=== PATIENT | female | born 1965 | race Caucasian/White ===

== ENCOUNTER 2016-02-28 04:01 | Emergency (ER) | payer OTHER ==
[~2016-02-28] VITALS: Ht 142.2 cm; Wt 65.0 kg
[~2016-02-28 04:01] MED LIST: ADV25050 INH; ALBU8.5H3 INH; CLON-412 PO; FIORICET PO; METH10TA2 PO; MULTI PO; PANT40TA4 PO; TEMA7.5C2 PO; TIOT18CA INH
[2016-02-28 04:24] VITALS: Ht 142.2 cm; Wt 65.0 kg
[2016-02-28] MEDS ORDERED: morphine 2 MG INJ IV STA (06:20)
[2016-02-28] MEDS ORDERED: ONDANSETRON 4 MG INJ IV STA (06:20)
[2016-02-28] MEDS ORDERED: SOD CHLORIDE 0.9% 1,000 ML IV STA (06:20)
[2016-02-28 07:29] LABS: BASOPHILS % 0.3 % (0.0-2.0); EOSINOPHILS # 0.4 10^3/ul (0.0-0.5); EOSINOPHILS % 5.4 % (0.0-7.0); HEMOGLOBIN 12.3 g/dl (12.0-16.0); LYMPHOCYTES # 2.4 10^3/ul (0.8-2.9); LYMPHOCYTES % 30.1 % (15.0-51.0); MEAN CORPUSCULAR HEMOGLOBIN 27.8 pg (29.0-33.0); MEAN CORPUSCULAR HGB CONC 33.3 g/dl (32.0-37.0); MEAN CORPUSCULAR VOLUME 83.5 fl (82.0-101.0); MEAN PLATELET VOLUME 9.1 fl (7.4-10.4); MONOCYTE # 0.6 10^3/ul (0.3-0.9); MONOCYTES % 6.9 % (0.0-11.0); NEUTROPHIL # 4.6 10^3/ul (1.6-7.5); NEUTROPHILS % 57.3 % (39.0-77.0); PLATELET COUNT 207 10^3/UL (140-440); RED BLOOD COUNT 4.43 10^6/ul (4.20-5.40); RED CELL DISTRIBUTION WIDTH 15.2 % (11.5-14.5)
[2016-02-28 07:33] LABS: CONDITION 1; LH ANALYZER COMMENTS 1
--- NOTE | 2016-02-28 07:42 | ERD ---
ER Documentation Chief Complaint Date/Time DATE: 02/28/16 TIME: 07:41 Chief Complaint C/o chronic abdominal pain. HPI This 51-year-old female comes emergency room complaining of nausea without vomiting as well as diarrhea with occasional crampy abdominal pain going on for over 4 years. States that she has no pain at this time does have some nausea. She does have pain it is in her right upper quadrant. Is otherwise healthy. ROS All systems reviewed and are negative except as per history of present illness. Medications Home Meds Active Scripts Diphenoxylate Hcl-Atropine* (Lomotil*) 5 Ml Soln, 5 ML GTB Q6H Y for DIARRHEA, # 14 ML Prov:ASHLEYPRIETO DO 02/28/16 Naproxen* (Naproxen*) 500 Mg Tablet, 500 MG PO BID Y for PAIN, #20 TAB Prov:PRIETO RAMIREZ DO 02/28/16 Ondansetron (Zofran Odt) 4 Mg Tab.rapdis, 4 MG PO Q6, #10 Prov:PRIETO RAMIREZ 02/28/16 Acetamin/Butalbital/Caffeine* (Fioricet*) [id number] Tab, 1 TAB PO Q6H Y for PAIN, #20 TAB Prov:OJ VAIL PA-C 11/09/15 Methadone Hcl* (Methadone*) 10 Mg Tab, 30 MG PO Q8, #7 TAB Prov:GARETH VANG 02/20/15 Tiotropium [place]* (Spiriva*) 1 Inh Inha, 1 INH INH DAILY for 30 Days Prov:GARETH VANG 02/20/15 Salmeterol Xinaf/Fluticasone* (Advair*) 1 Inh Inha, 1 INH INH BID for 30 Days Prov:GARETH VANG 02/20/15 Pantoprazole* (Pantoprazole*) 40 Mg Tabec, 40 MG PO DAILY@06 for 30 Days Prov:GARETH VANG 02/20/15 Multivitamins* (Theragran*) 1 Tab Tab, 1 TAB PO DAILY for 30 Days, TAB Prov:GARETH VANG 02/20/15 Reported Medications Clonazepam* (Klonopin*) 1 Mg Tablet, 2 MG PO Q6 Y for ANXIETY, TAB 05/30/15 Temazepam* (Restoril*) 7.5 Mg Capsule, 7.5 MG PO HS Y for INSOMNIA, CAP 05/30/15 Albuterol Sulfate* (Proair HFA*) 8.5 Gm Hfa.aer.ad, 2 PUFF INH Q4, INH 11/24/13 Allergies Allergies: Coded Allergies: No Known Allergy (Verified , 05/29/15) PMhx/Soc History of Surgery: Yes (right knee, c/section x2, hysterectomy) Anesthesia Reaction: No Hx Neurological Disorder: No (seizure x1- 2011) Hx Respiratory Disorders: Yes (asthma, COPD) Hx Cardiac Disorders: No Hx Psychiatric Problems: Yes (depression, bipolar) Hx Miscellaneous Medical Probl: No Hx Alcohol Use: No Hx Substance Use: No Hx Tobacco Use: Yes Smoking Status: Current every day smoker Physical Exam Vitals Vital Signs Date Time Temp Pulse Resp B/P Pulse Ox O2 Delivery O2 Flow Rate FiO2 02/28/16 04:24 98.0 78 20 140/82 98 Physical Exam Const: [] No distress Head: Atraumatic Eyes: Normal Conjunctiva ENT: Normal External Ears, Nose and Mouth. Neck: Full range of motion..~ No meningismus. Resp: Clear to auscultation bilaterally Cardio: Regular rate and rhythm, no murmurs Abd: Soft, very mild right upper quadrant tenderness underneath the diaphragm., non distended. Normal bowel sounds Skin: No petechiae or rashes Back: No midline or flank tenderness Ext: No cyanosis, or edema Neur: Awake and alert and oriented 3, no focal deficits Psych: Normal Mood and Affect Result Diagram: 02/28/16 0710 02/28/16 0710 Results 24 hrs Laboratory Tests Test 02/28/16 07:10 02/28/16 08:00 Alanine Aminotransferase (ALT/SGPT) 24IU/L Albumin 4.0g/dl Albumin/Globulin Ratio 0.95 Alkaline Phosphatase 100IU/L Anion Gap 16 Aspartate Amino Transf (AST/SGOT) 31IU/L Basophils # 0.010^3/ul Basophils % 0.3% Blood Morphology Comment Blood Urea Nitrogen 21mg/dl Calcium Level 9.9mg/dl Carbon Dioxide Level 29mmol/L Chloride Level 104mmol/L Creatinine 0.85mg/dl Direct Bilirubin 0.00mg/dl Eosinophils # 0.410^3/ul Eosinophils % 5.4% Globulin 4.20g/dl Glucose Level 88mg/dl Hematocrit 37.0% Hemoglobin 12.3g/dl Indirect Bilirubin 0.1mg/dl Lipase 215U/L Lymphocytes # 2.410^3/ul Lymphocytes % 30.1% Mean Corpuscular Hemoglobin 27.8pg Mean Corpuscular Hemoglobin Concent 33.3g/dl Mean Corpuscular Volume 83.5fl Mean Platelet Volume 9.1fl Monocytes # 0.610^3/ul Monocytes % 6.9% Neutrophils # 4.610^3/ul Neutrophils % 57.3% Nucleated Red Blood Cells # 0.010^3/ul Nucleated Red Blood Cells % 0.0/100WBC Platelet Count 60659^3/UL Potassium Level 4.0mmol/L Red Blood Count 4.4310^6/ul Red Cell Distribution Width 15.2% Sodium Level 145mmol/L Total Bilirubin 0.1mg/dl Total Protein 8.2g/dl White Blood Count 8.010^3/ul Urine Bilirubin NEGATIVE Urine Clarity CLEAR Urine Color LT. YELLOW Urine Glucose NEGATIVE% Urine Hemoglobin NEGATIVE Urine Ketones NEGATIVE Urine Leukocyte Esterase NEGATIVE Urine Nitrite NEGATIVE Urine Specific [place] >=1.030 Urine Total Protein NEGATIVE Urine Urobilinogen 0.2 E.U./dL Urine pH 6.0 Current Medications Medications (Trade) Dose Ordered Sig/Shant Route PRN Reason Start Time Stop Time Status Last Admin Dose Admin Sodium Chloride (NS) 1,000 ml @ 1,000 mls/hr Q1H STAT IV 02/28/16 06:20 02/28/16 07:19 DC Morphine Sulfate (morphine) 2 mg ONCE STAT IV 02/28/16 06:20 02/28/16 06:22 DC Ondansetron HCl (Zofran Inj) 4 mg ONCE STAT IV 02/28/16 06:20 02/28/16 06:22 DC Procedures/MDM Biliary colic in conjunction with chronic diarrhea and 51-year-old female. Gallstones were found on ultrasound. Patient was given 2 mg of morphine as well as IV fluid and Zofran. Her nausea was so resolved that she was eating pretzels and chocolate bars in the emergency room. I have very low suspicion for acute cholecystitis or ascending cholangitis the patient has normal vital signs no elevated white blood cell count elevated liver function tests and a very subacute presentation with a benign abdominal exam. I am discharging with a jerome ardon Zofran ODT and giving her both written and verbal instructions to see a general surgeon with a referral through her primary care doctor. She has primary care doctor and said that she will do this. I recommended that she call today. Right upper quadrant ultrasound interpretation: Multiple gallstones with state is difficult to diagnose paracystic colic fluid or ductal dilation. Two-view abdominal x-ray interpretation by myself: Constipation with stool retention throughout colon, no obstruction, no free air, no fractures Departure Diagnosis: Primary Impression: Biliary colic Additional Impressions: Chronic diarrhea Constipation Acute abdominal pain Condition: Stable PRIETO RAMIREZ DO Feb 28, 2016 07:42
[2016-02-28 07:44] LABS: ALBUMIN/GLOBULIN RATIO 0.95; BILIRUBIN,INDIRECT 0.1 mg/dl (0-1.1); BILIRUBIN,TOTAL 0.1 mg/dl (0.2-1.3); CREATININE 0.85 mg/dl (0.44-1.00); TOTAL PROTEIN 8.2 g/dl (6.1-8.1)
[2016-02-28 07:45] LABS: CALCIUM 9.9 mg/dl (8.4-10.2)
--- NOTE | 2016-02-28 07:45 | RADRPT ---
PROCEDURE: US Gall Bladder CLINICAL INDICATION: Abdominal pain TECHNIQUE: Multiple sagittal oblique and transverse real time images were obtained of the abdomen. COMPARISON: None FINDINGS: The gallbladder is contracted with multiple gallstones present. The gallbladder wall could not be c learly assessed. Recommend clinical correlation. There is no evidence of pericholecystic fluid. C ommon bile duct is normal limits in size measuring 6 mm. No evidence of intrahepatic biliary ductal dilation. The pancreas is incompletely visualized caliber those portions that could be seen are un remarkable. The liver is normal in size configuration without focal lesions. The right kidney is n ormal in size configuration without focal lesions. No evidence of right hydronephrosis. IMPRESSION: 1. Contracted gallbladder with multiple gallstones. Gallbladder wall could not be assessed. Recom mend clinical correlation to exclude calculus cholecystitis. 2. No evidence of biliary ductal dilation. RPTAT:AAJJ Physician Ivan Date Time Electronically viewed and signed by Physician Ivan on 02/28/2016 07:45 BM/
--- NOTE | 2016-02-28 07:54 | RADRPT ---
PROCEDURE: XR Abdomen. CLINICAL INDICATION: Abdominal pain TECHNIQUE: 2 AP views of the abdomen were obtained COMPARISON: None. FINDINGS: There is a nonobstructive bowel gas pattern. Moderate volume formed stool is seen throughout the col on. No intraperitoneal free air or pneumatosis is identified. There is no evidence of organomegaly. No abnormal soft tissue calcifications are seen. The visualized portion of the lung bases are becca ar. The osseous structures are unremarkable. IMPRESSION: Moderate volume formed stool throughout the colon, consistent with constipation. RPTAT: HH .Catalina Prasad MD, MD Date Time Electronically viewed and signed by .Catalina Prasad MD, on 02/28/2016 07:54 .G/
[2016-02-28] MEDS ORDERED: ONDA4TAB11 PO (08:05)
[2016-02-28] MEDS ORDERED: UDLOM GTB (08:05)
[2016-02-28] MEDS ORDERED: NAPR-688 PO (08:05)
[2016-02-28 08:58] LABS: ADD UMIC NO; URINE BILIRUBIN (Dip) NEGATIVE (NEGATIVE); URINE BLOOD (Dip) NEGATIVE (NEGATIVE); URINE COLOR LT. YELLOW (YELLOW); URINE GLUCOSE (Dip) NEGATIVE (NEGATIVE); URINE KETONES (Dip) NEGATIVE (NEGATIVE); URINE LEUKOCYTE ESTERASE (Dip) NEGATIVE (NEGATIVE); URINE NITRITE (Dip) NEGATIVE (NEGATIVE); URINE TOTAL PROTEIN (Dip) NEGATIVE (NEGATIVE); URINE UROBILINOGEN (Dip) 0.2 E.U./dL (0.1-1.0)
[2016-02-28 09:37] VITALS: BP 154/64; PULSE 89; RESP 20; TEMP 98.1
== END 2016-02-28 09:37 | disposition home or self-care (01) ==
LOC: FTE 04:01
DX: K80.50 Calculus of bile duct without cholangitis or cholecystitis without obstruction (principal); K52.9 Noninfective gastroenteritis and colitis, unspecified; K59.00 Constipation, unspecified; R10.11 Right upper quadrant pain; J44.9 Chronic obstructive pulmonary disease, unspecified; F17.210 Nicotine dependence, cigarettes, uncomplicated
CPT/HCPCS: 74010; 76705; 80053; 81003; 83690; 85025; J2405; J7030; Z7502

== ENCOUNTER 2016-03-28 01:50 | Emergency (ER) | payer OTHER ==
[~2016-03-28] VITALS: Ht 154.9 cm; Wt 80.0 kg
[~2016-03-28 01:50] MED LIST changes: +NAPR-688 PO; +ONDA4TAB11 PO; +UDLOM GTB
[2016-03-28 02:00] VITALS: Ht 154.9 cm; Wt 80.0 kg
[2016-03-28] MEDS ORDERED: KETOROLAC 30 MG INJ IM ONE (03:30)
[2016-03-28] MEDS ORDERED: OXYCODONE/ACETAMINOPHEN (5/325) TAB PO ONE (03:30)
[2016-03-28 03:52] LABS: BASOPHILS % 0.4 % (0.0-2.0); EOSINOPHILS # 0.4 10^3/ul (0.0-0.5); EOSINOPHILS % 5.2 % (0.0-7.0); HEMATOCRIT 38.2 % (37.0-47.0); HEMOGLOBIN 12.4 g/dl (12.0-16.0); LYMPHOCYTES # 2.6 10^3/ul (0.8-2.9); LYMPHOCYTES % 32.9 % (15.0-51.0); MEAN CORPUSCULAR HEMOGLOBIN 28.4 pg (29.0-33.0); MEAN CORPUSCULAR HGB CONC 32.5 g/dl (32.0-37.0); MEAN CORPUSCULAR VOLUME 87.4 fl (82.0-101.0); MONOCYTE # 0.5 10^3/ul (0.3-0.9); MONOCYTES % 6.9 % (0.0-11.0); NEUTROPHIL # 4.2 10^3/ul (1.6-7.5); NEUTROPHILS % 54.1 % (39.0-77.0); PLATELET COUNT 241 10^3/UL (140-415); RED BLOOD COUNT 4.37 10^6/ul (4.20-5.40); RED CELL DISTRIBUTION WIDTH 14.6 % (11.5-14.5); WHITE BLOOD COUNT 7.8 10^3/ul (4.8-10.8)
[2016-03-28 04:07] LABS: INR 0.84; PROTIME 11.5 Sec (12.2-14.2); PT RATIO 0.9
[2016-03-28 04:08] LABS: ALBUMIN 3.8 g/dl (3.3-4.9); POTASSIUM 4.2 mmol/L (3.5-5.1)
[2016-03-28 04:10] LABS: CREATININE 0.95 mg/dl (0.44-1.00)
[2016-03-28 04:11] LABS: ALBUMIN/GLOBULIN RATIO 1.02; CALCIUM 9.2 mg/dl (8.4-10.2); TOTAL PROTEIN 7.5 g/dl (6.1-8.1)
[2016-03-28] MEDS ORDERED: IBUP-1542 PO (05:06)
[2016-03-28] MEDS ORDERED: ONDA4TAB8 PO (05:06)
[2016-03-28] MEDS ORDERED: MAG355OR14 PO (05:06)
--- NOTE | 2016-03-28 05:12 | ERD ---
ER Documentation Chief Complaint Date/Time DATE: 03/28/16 TIME: 05:08 Chief Complaint right upper abd pain x 1 day. hx of gallstones HPI 51-year-old woman complains of right upper quadrant abdominal pain 1 day similar previous episodes. She has a long history of cholelithiasis and usually requires opioid analgesics for pain control. She does have a history of heavy opioid use and has had multiple previous falls I suspect due to overdose. She denies falling today, she has had no paresis or paresthesias, no vomiting or diarrhea, no weight loss, no melena or blood per rectum. ROS All systems reviewed and are negative except as per history of present illness. Medications Home Meds Active Scripts Ondansetron Hcl* (Zofran*) 4 Mg Tablet, 4 MG PO Q8H Y for NAUSEA AND/OR VOMITING , #15 TAB Prov:PRANEETH THOMPSON MD 03/28/16 Mag Hydrox/Al Hydrox/Simeth (Maalox Advanced Suspension) 355 Ml Oral.susp, 2 TSP PO TID for PAIN, #24 OZ Prov:PRANEETH THOMPSON MD 03/28/16 Ibuprofen* (Ibuprofen*) 600 Mg Tablet, 600 MG PO Q8 for PAIN AND/OR INFLAMMATION , #30 TAB Prov:PRANEETH THOMPSON MD 03/28/16 Diphenoxylate Hcl-Atropine* (Lomotil*) 5 Ml Soln, 5 ML GTB Q6H Y for DIARRHEA, # 14 ML Prov:PRIETO RAMIREZ DO 02/28/16 Naproxen* (Naproxen*) 500 Mg Tablet, 500 MG PO BID Y for PAIN, #20 TAB Prov:PRIETO RAMIREZ DO 02/28/16 Ondansetron (Zofran Odt) 4 Mg Tab.rapdis, 4 MG PO Q6, #10 Prov:PRIETO RAMIREZ DO 02/28/16 Acetamin/Butalbital/Caffeine* (Fioricet*) [id number] Tab, 1 TAB PO Q6H Y for PAIN, #20 TAB Prov:OJ VAIL PA-C 11/09/15 Methadone Hcl* (Methadone*) 10 Mg Tab, 30 MG PO Q8, #7 TAB Prov:GARETH VANG 02/20/15 Tiotropium [place]* (Spiriva*) 1 Inh Inha, 1 INH INH DAILY for 30 Days Prov:GARETH VANG 02/20/15 Salmeterol Xinaf/Fluticasone* (Advair*) 1 Inh Inha, 1 INH INH BID for 30 Days Prov:GARETH VANG 02/20/15 Pantoprazole* (Pantoprazole*) 40 Mg Tabec, 40 MG PO DAILY@06 for 30 Days Prov:GARETH VANG 02/20/15 Multivitamins* (Theragran*) 1 Tab Tab, 1 TAB PO DAILY for 30 Days, TAB Prov:GARETH VANG 02/20/15 Reported Medications Clonazepam* (Klonopin*) 1 Mg Tablet, 2 MG PO Q6 Y for ANXIETY, TAB 05/30/15 Temazepam* (Restoril*) 7.5 Mg Capsule, 7.5 MG PO HS Y for INSOMNIA, CAP 05/30/15 Albuterol Sulfate* (Proair HFA*) 8.5 Gm Hfa.aer.ad, 2 PUFF INH Q4, INH 11/24/13 Allergies Allergies: Coded Allergies: No Known Allergy (Verified , 03/28/16) PMhx/Soc Heroin abuse, hepatitis C, cholelithiasis, multiple previous falls with multiple x-rays of the hand, chest, ankle, femur, and CT scans of the brain and face, recent gallbladder ultrasound which revealed cholelithiasis History of Surgery: Yes (right knee, c/section x2, hysterectomy) Anesthesia Reaction: No Hx Neurological Disorder: No (seizure x1- 2011) Hx Respiratory Disorders: Yes (asthma, COPD) Hx Cardiac Disorders: No Hx Psychiatric Problems: Yes (depression, bipolar) Hx Miscellaneous Medical Probl: Yes (DEGENERATIVE DISC DISEASE) Hx Alcohol Use: No Hx Substance Use: No Hx Tobacco Use: Yes Smoking Status: Current every day smoker Physical Exam Vitals Vital Signs Date Time Temp Pulse Resp B/P Pulse Ox O2 Delivery O2 Flow Rate FiO2 03/28/16 05:35 98.3 71 20 105/65 100 Room Air 03/28/16 03:00 98.3 89 20 110/68 99 Room Air 03/28/16 02:00 98.3 100 20 120/74 97 Physical Exam GENERAL: Well-developed, well-nourished, well-hydrated, in no apparent distress , mild discomfort HEENT: Moist mucous membranes, pink conjunctiva, no cervical spine tenderness or step-off deformities, no goiter, no jaundice or icterus, extraocular movements intact without pain. No submandibular induration, and no pharyngeal erythema NEURO: Alert and oriented 3, cranial nerves II through XII intact bilaterally, pupils equal round reactive to light, no focal deficits or facial asymmetry, sensation intact distally Strength 5/5 in upper and lower extremities bilaterally CARDIAC: Regular rate and rhythm, no murmurs rubs or gallops LUNGS: Clear bilaterally no wheezing crackles or stridor ABDOMEN: Soft nontender, no guarding, no rigidity, no rebound, no psoas sign no obturator sign. Normoactive bowel sounds. No Gonzalez sign SKIN: Warm and dry to touch, no abrasions, contusions, or hematomas, no lacerations, no ecchymosis, no target lesions, and without ulcers EXTREMITIES: No clubbing cyanosis or edema, calves are bilaterally symmetrical, no Homans sign, no popliteal cord sign. Distal pulses equal and bilateral PSYCH: Normal affect without agitation or irritability Result Diagram: 03/28/1632903/28/16 0330 Results 24 hrs Laboratory Tests Test 03/28/16 03:30 Alanine Aminotransferase (ALT/SGPT) 21IU/L Albumin 3.8g/dl Albumin/Globulin Ratio 1.02 Alkaline Phosphatase 106IU/L Anion Gap 15 Aspartate Amino Transf (AST/SGOT) 35IU/L Basophils # 0.010^3/ul Basophils % 0.4% Blood Urea Nitrogen 21mg/dl Calcium Level 9.2mg/dl Carbon Dioxide Level 28mmol/L Chloride Level 106mmol/L Creatinine 0.95mg/dl Direct Bilirubin 0.00mg/dl Eosinophils # 0.410^3/ul Eosinophils % 5.2% Globulin 3.70g/dl Glucose Level 117mg/dl Hematocrit 38.2% Hemoglobin 12.4g/dl INR International Normalized Ratio 0.84 Indirect Bilirubin 0.0mg/dl Lipase 56U/L Lymphocytes # 2.610^3/ul Lymphocytes % 32.9% Mean Corpuscular Hemoglobin 28.4pg Mean Corpuscular Hemoglobin Concent 32.5g/dl Mean Corpuscular Volume 87.4fl Mean Platelet Volume 11.0fl Monocytes # 0.510^3/ul Monocytes % 6.9% Neutrophils # 4.210^3/ul Neutrophils % 54.1% Nucleated Red Blood Cells # 0.010^3/ul Nucleated Red Blood Cells % 0.0/100WBC Platelet Count 54966^3/UL Potassium Level 4.2mmol/L Prothrombin Time 11.5Sec Prothrombin Time Ratio 0.9 Red Blood Count 4.3710^6/ul Red Cell Distribution Width 14.6% Sodium Level 145mmol/L Total Bilirubin 0.0mg/dl Total Protein 7.5g/dl White Blood Count 7.810^3/ul Current Medications Medications (Trade) Dose Ordered Sig/Shant Route PRN Reason Start Time Stop Time Status Last Admin Dose Admin Ketorolac Tromethamine (Toradol) 30 mg ONCE ONCE IM 03/28/16 03:30 03/29/16 13:48 DC 03/28/16 03:39 Oxycodone/ Acetaminophen (Percocet (5/ 325)) 1 tab ONCE ONCE PO 03/28/16 03:30 03/29/16 13:48 DC 03/28/16 03:39 Procedures/MDM I administered Toradol 30 mg intramuscular injection and Percocet 1 tablet p.o. CBC was normal, electrolytes revealed dehydration with a BUN/creatinine of 21/ 0.95, liver function tests were normal, lipase was normal I reviewed the patient's past medical history and previous workups as well as recent ultrasound of the gallbladder which revealed cholelithiasis without cholecystitis. Patient's pain has been controlled here and she has no signs or symptoms of acute cholecystitis. She is afebrile and is able to tolerate p.o. and will be discharged with NSAIDs analgesics to follow-up with her PMD Differential diagnoses considered, included but not limited to acute coronary syndrome, pulmonary embolism, aortic dissection, abdominal aortic aneurysm, sepsis, stroke, meningitis, encephalitis, pneumonia, appendicitis, cholecystitis , bowel obstruction, pyelonephritis, nephrolithiasis, cystitis, as well as metabolic, hematologic, and electrolyte abnormalities. As well as abscess, cellulitis, fractures, and dislocations. Patient feels much better at this time, and vital signs are normal, symptoms have improved. I did give strict instructions to return to the ED if symptoms continue or worsen, patient will otherwise follow-up with primary care physician. Patient understood instructions and agreed to plan. Departure Diagnosis: Primary Impression: Cholelithiasis Cholelithiasis location: gallbladder Cholecystitis presence: without cholecystitis Biliary obstruction: without biliary obstruction Qualified Code : K80.20 - Calculus of gallbladder without cholecystitis without obstruction Condition: Good Patient Instructions: Gallstones PRANEETH THOMPSON MD Mar 28, 2016 05:12
[2016-03-28 05:35] VITALS: BP 105/65; PULSE 71; RESP 20; TEMP 98.3
== END 2016-03-28 05:35 | disposition home or self-care (01) ==
LOC: E/R 01:50
DX: K80.20 Calculus of gallbladder without cholecystitis without obstruction (principal); F17.210 Nicotine dependence, cigarettes, uncomplicated; J44.9 Chronic obstructive pulmonary disease, unspecified
CPT/HCPCS: 80053; 83690; 85025; 85610; J1885; Z7610; 36415; 96372

== ENCOUNTER 2016-08-07 21:25 | Inpatient (IN) | payer OTHER ==
[~2016-08-07] VITALS: Ht 162.6 cm; Wt 74.5 kg
[~2016-08-07 21:25] MED LIST changes: +IBUP-1542 PO; +MAG355OR14 PO; +ONDA4TAB8 PO
[2016-08-07 21:37] VITALS: Ht 162.6 cm; Wt 74.5 kg
[2016-08-07] MEDS ORDERED: SODIUM CHLORIDE 0.9% 1L BAG IV* STA (23:03)
[2016-08-07] MEDS ORDERED: CEFTRIAXONE 1 GM/50 ML (PMX) 50 ML IVPB STA (23:03)
[2016-08-07] MEDS ORDERED: VANCOMYCIN 1 GM (PMX) 250 ML IVPB ONE (23:30)
[2016-08-07] MEDS ORDERED: ALBUTEROL 0.083% (NEB) 2.5 MG/3 ML AMP HHN STA (23:45)
[2016-08-07 23:52] LABS: ADD SCAN DIFF NO
[2016-08-07 23:58] LABS: BASOPHILS % 0.2 % (0.0-2.0); EOSINOPHILS % 0.3 % (0.0-7.0); HEMATOCRIT 38.8 % (37.0-47.0); HEMOGLOBIN 12.4 g/dl (12.0-16.0); LYMPHOCYTES # 1.1 10^3/ul (0.8-2.9); LYMPHOCYTES % 7.2 % (15.0-51.0); MEAN CORPUSCULAR VOLUME 87.6 fl (82.0-101.0); MEAN PLATELET VOLUME 11.1 fl (7.4-10.4); MONOCYTE # 0.8 10^3/ul (0.3-0.9); MONOCYTES % 5.1 % (0.0-11.0); NEUTROPHIL # 13.4 10^3/ul (1.6-7.5); NEUTROPHILS % 86.6 % (39.0-77.0); PLATELET COUNT 234 10^3/UL (140-415); RED BLOOD COUNT 4.43 10^6/ul (4.20-5.40); RED CELL DISTRIBUTION WIDTH 13.8 % (11.5-14.5); WHITE BLOOD COUNT 15.5 10^3/ul (4.8-10.8)
[2016-08-08] VITALS (8 sets, daily range): BP systolic 86–98; BP diastolic 49–58; PULSE 39–62; RESP 16–18; TEMP 97.8
[2016-08-08] MEDS ORDERED: IPRATROPIUM (NEB) 0.5 MG/2.5 ML AMP HHN ONE
--- NOTE | 2016-08-08 00:04 | RADRPT ---
PROCEDURE: XR Chest. CLINICAL INDICATION: Chest pain. Sepsis TECHNIQUE: Portable AP upright view of the chest was obtained. COMPARISON: 05/30/2015 FINDINGS: The cardiomediastinal silhouette is within normal limits. The lungs are clear. There is no evidenc e for pleural effusion, pneumothorax or pulmonary vascular congestion. The osseous structures are i ntact with no evidence for acute abnormality. RPTAT:HJJR IMPRESSION: No evidence for acute intrathoracic pathology. Physician Kareem Date Time Electronically viewed and signed by Diego Parr Physician on 08/08/2016 00:04 JR/
--- NOTE | 2016-08-08 00:04 | RADRPT ---
PROCEDURE: US Lower extremity Venous. CLINICAL INDICATION: Left leg swelling TECHNIQUE: Multiple sonographic images of the left lower extremity deep venous system was obtained utilizing grayscale, color-flow, compressive sonography and doppler imaging with augmentation. COMPARISON: None. FINDINGS: There is normal compressibility / flow within the bilateral common femoral, femoral and popliteal ve ins. The visualized deep veins of the calf are unremarkable. RPTAT:HJJR IMPRESSION: No sonographic evidence for deep venous thrombosis of the left lower extremity. Physician Kareem Date Time Electronically viewed and signed by Physician Kareem on 08/08/2016 00:04 /
[2016-08-08 00:06] LABS: ADD UMIC YES; UR ASCORBIC ACID NEGATIVE (NEGATIVE); UR BACTERIA FEW /HPF (NONE SEEN); UR BILIRUBIN (Dip) NEGATIVE (NEGATIVE); UR BLOOD (Dip) NEGATIVE (NEGATIVE); UR CLARITY SLIGHTLY CLOUDY (CLEAR); UR COLOR YELLOW (YELLOW); UR GLUCOSE (Dip) NEGATIVE (NEGATIVE); UR KETONES (Dip) NEGATIVE (NEGATIVE); UR LEUKOCYTE ESTERASE (Dip) 1+ Leu/ul (NEGATIVE); UR MUCUS FEW /HPF (NONE SEEN); UR NITRITE (Dip) NEGATIVE (NEGATIVE); UR RBC 2 /HPF (0-5); UR SPECIFIC GRAVITY (Dip) 1.026 (1.003-1.030); UR SQUAMOUS EPITHELIAL CELL FEW /HPF (FEW); UR TOTAL PROTEIN (Dip) NEGATIVE (NEGATIVE); UR UROBILINOGEN (Dip) NEGATIVE (NEGATIVE)
[2016-08-08] MEDS ORDERED: DICLOFENAC SODIUM 37.5 MG/ML VIAL IV ONE (00:11)
[2016-08-08 00:13] LABS: INR 1.01; PROTIME 13.3 Sec (12.2-14.2)
[2016-08-08 00:17] LABS: ALANINE AMINOTRANSFERASE 27 IU/L (13-69); ALBUMIN 4.5 g/dl (3.3-4.9); ALBUMIN/GLOBULIN RATIO 1.15; ALKALINE PHOSPHATASE 97 IU/L (42-121); ANION GAP 17 (8-16); ASPARTATE AMINO TRANSFERASE 26 IU/L (15-46); BILIRUBIN,INDIRECT 0.1 mg/dl (0-1.1); BILIRUBIN,TOTAL 0.1 mg/dl (0.2-1.3); BLOOD UREA NITROGEN 16 mg/dl (7-20); CALCIUM 9.8 mg/dl (8.4-10.2); CARBON DIOXIDE 28 mmol/L (21-31); CHLORIDE 100 mmol/L (97-110); CREATININE 1.03 mg/dl (0.44-1.00); GLUCOSE 88 mg/dl (70-220); POTASSIUM 4.5 mmol/L (3.5-5.1); SODIUM 140 mmol/L (135-144); TOTAL PROTEIN 8.4 g/dl (6.1-8.1)
--- NOTE | 2016-08-08 00:19 | ERA ---
ER Documentation Chief Complaint Date/Time DATE: 08/08/16 TIME: 00:11 Chief Complaint swelling and redness, warm to touch left lower leg HPI This 51-year-old female presents for several days of increasing swelling redness and pain to her left lower leg. She believes it started as a small red lesion. There is increased. The patient is on methadone currently and boyfriend states she has a high pain tolerance. She has felt generalized weakness. She also had chills. She also has shortness of breath and a history of asthma. She is treated only with a rescue inhaler at home. She is accompanied by her boyfriend and their dog. ROS All systems reviewed and are negative except as per history of present illness. Medications Home Meds Active Scripts Ibuprofen* (Ibuprofen*) 600 Mg Tablet, 600 MG PO Q8 for PAIN AND/OR INFLAMMATION , #30 TAB Prov:PRANEETH THOMPSON MD 03/28/16 Diphenoxylate Hcl-Atropine* (Lomotil*) 5 Ml Soln, 5 ML GTB Q6H Y for DIARRHEA, # 14 ML Prov:PRIETO RAMIREZ DO 02/28/16 Naproxen* (Naproxen*) 500 Mg Tablet, 500 MG PO BID Y for PAIN, #20 TAB Prov:PRIETO RAMIREZ DO 02/28/16 Tiotropium [employer]* (Spiriva*) 1 Inh Inha, 1 INH INH DAILY for 30 Days Prov:GARETH VANG 02/20/15 Salmeterol Xinaf/Fluticasone* (Advair*) 1 Inh Inha, 1 INH INH BID for 30 Days Prov:GARETH VANG 02/20/15 Multivitamins* (Theragran*) 1 Tab Tab, 1 TAB PO DAILY for 30 Days, TAB Prov:GARETH VANG 02/20/15 Reported Medications Clonazepam* (Klonopin*) 1 Mg Tablet, 2 MG PO Q6 Y for ANXIETY, TAB 05/30/15 Temazepam* (Restoril*) 7.5 Mg Capsule, 7.5 MG PO HS Y for INSOMNIA, CAP 05/30/15 Albuterol Sulfate* (Proair HFA*) 8.5 Gm Hfa.aer.ad, 2 PUFF INH Q4, INH 11/24/13 Discontinued Scripts Ondansetron Hcl* (Zofran*) 4 Mg Tablet, 4 MG PO Q8H Y for NAUSEA AND/OR VOMITING , #15 TAB Prov:PRANEETH THOMPSON MD 03/28/16 Mag Hydrox/Al Hydrox/Simeth (Maalox Advanced Suspension) 355 Ml Oral.susp, 2 TSP PO TID for PAIN, #24 OZ Prov:PRANEETH THOMPSON MD 03/28/16 Ondansetron (Zofran Odt) 4 Mg Tab.rapdis, 4 MG PO Q6, #10 Prov:PRIETO RAMIREZ DO 02/28/16 Acetamin/Butalbital/Caffeine* (Fioricet*) [id number] Tab, 1 TAB PO Q6H Y for PAIN, #20 TAB Prov:OJ VAIL PA-C 11/09/15 Methadone Hcl* (Methadone*) 10 Mg Tab, 30 MG PO Q8, #7 TAB Prov:GARETH VANG 02/20/15 Pantoprazole* (Pantoprazole*) 40 Mg Tabec, 40 MG PO DAILY@06 for 30 Days Prov:GARETH VANG 02/20/15 Allergies Allergies: Coded Allergies: No Known Allergy (Unverified , 08/08/16) PMhx/Soc History of Surgery: Yes (right knee, c/section x2, hysterectomy) Anesthesia Reaction: No Hx Neurological Disorder: No (seizure x1- 2011) Hx Respiratory Disorders: Yes (asthma, COPD) Hx Cardiac Disorders: No Hx Psychiatric Problems: Yes (depression, bipolar) Hx Miscellaneous Medical Probl: Yes (DEGENERATIVE DISC DISEASE) Hx Alcohol Use: No Hx Substance Use: Yes (heroin use 2 weeks ago) Hx Tobacco Use: Yes Smoking Status: Former smoker Physical Exam Vitals Vital Signs Date Time Temp Pulse Resp B/P Pulse Ox O2 Delivery O2 Flow Rate FiO2 08/08/16 02:17 80 77/51 08/08/16 01:48 97.5 86 22 86/54 99 Room Air 08/08/16 00:40 91 20 100 21 08/07/16 23:53 94 22 103/67 98 Room Air 08/07/16 21:37 103.1 127 20 127/61 98 Physical Exam Const: [] Moderate distress Head: Atraumatic Eyes: Normal Conjunctiva ENT: Normal External Ears, Nose and Mouth. Neck: Full range of motion..~ No meningismus. Resp: Bilateral expiratory wheezes, mild tachypnea Cardio: Regular tachycardia no murmurs Abd: Soft, non tender, non distended. Normal bowel sounds Skin: No petechiae or rashes Back: No midline or flank tenderness Ext: No cyanosis, right lower leg edema that is almost circumferential involving the inferior half of the right calf also causing edema and some erythema of the foot. This area is tender to palpation and positive for marked calor Neur: Awake and alert and oriented 3, no focal deficits Psych: Normal Mood and Affect Result Diagram: 08/07/16 2330 08/07/162329 Results 24 hrs Laboratory Tests Test 08/07/16 23:30 08/08/16 02:35 White Blood Count 15.510^3/ul Red Blood Count 4.4310^6/ul Hemoglobin 12.4g/dl Hematocrit 38.8% Mean Corpuscular Volume 87.6fl Mean Corpuscular Hemoglobin 28.0pg Mean Corpuscular Hemoglobin Concent 32.0g/dl Red Cell Distribution Width 13.8% Platelet Count 46959^3/UL Mean Platelet Volume 11.1fl Neutrophils % 86.6% Lymphocytes % 7.2% Monocytes % 5.1% Eosinophils % 0.3% Basophils % 0.2% Nucleated Red Blood Cells % 0.0/100WBC Neutrophils # 13.410^3/ul Lymphocytes # 1.110^3/ul Monocytes # 0.810^3/ul Eosinophils # 0.010^3/ul Basophils # 0.010^3/ul Nucleated Red Blood Cells # 0.010^3/ul Prothrombin Time 13.3Sec Prothrombin Time Ratio 1.0 INR International Normalized Ratio 1.01 Activated Partial Thromboplast Time 37.0Sec Urine Color YELLOW Urine Clarity SLIGHTLY CLOUDY Urine pH 5.0 Urine Specific [place] 1.026 Urine Ketones NEGATIVEmg/dL Urine Nitrite NEGATIVEmg/dL Urine Bilirubin NEGATIVEmg/dL Urine Urobilinogen NEGATIVEmg/dL Urine Leukocyte Esterase 1+[place]/ul Urine Microscopic RBC 2/HPF Urine Microscopic WBC 8/HPF Urine Squamous Epithelial Cells FEW/HPF Urine Bacteria FEW/HPF Urine Mucus FEW/HPF Urine Hemoglobin NEGATIVEmg/dL Urine Glucose NEGATIVEmg/dL Urine Total Protein NEGATIVEmg/dl Sodium Level 140mmol/L Potassium Level 4.5mmol/L Chloride Level 100mmol/L Carbon Dioxide Level 28mmol/L Anion Gap 17 Blood Urea Nitrogen 16mg/dl Creatinine 1.03mg/dl Glucose Level 88mg/dl Lactic Acid Level 0.9mmol/L 3.4mmol/L Calcium Level 9.8mg/dl Total Bilirubin 0.1mg/dl Direct Bilirubin 0.00mg/dl Indirect Bilirubin 0.1mg/dl Aspartate Amino Transf (AST/SGOT) 26IU/L Alanine Aminotransferase (ALT/SGPT) 27IU/L Alkaline Phosphatase 97IU/L Troponin I < 0.012ng/ml Total Protein 8.4g/dl Albumin 4.5g/dl Globulin 3.90g/dl Albumin/Globulin Ratio 1.15 Current Medications Medications (Trade) Dose Ordered Sig/Shant Route PRN Reason Start Time Stop Time Status Last Admin Dose Admin Sodium Chloride 2310 ml 2,310 ml BOLUS OVER 2 HOURS STAT IV* 08/07/16 23:03 08/07/16 23:08 DC 08/07/16 23:45 Vancomycin HCl 250 ml @ 125 mls/hr ONCE ONCE IVPB 08/07/16 23:30 08/08/16 01:29 DC 08/08/16 01:21 Ceftriaxone Sodium (Rocephin) 50 ml @ 100 mls/hr ONCE STAT IVPB 08/07/16 23:03 08/07/16 23:32 DC 08/07/16 23:45 Albuterol (Proventil 0.083% (Neb)) 5 mg ONCE STAT HHN 08/07/16 23:45 08/07/16 23:46 DC 08/08/16 00:36 Ipratropium [employer] (Atrovent 0.02% (Neb)) 1 mg ONCE ONCE HHN 08/08/16 00:00 08/08/16 00:01 DC 08/08/16 00:36 Morphine Sulfate (morphine) 8 mg ONCE ONCE IV 08/08/16 00:30 08/08/16 00:31 DC 08/08/16 01:14 Diclofenac Sodium (Dyloject) 37.5 mg ONCE ONCE IV 08/08/16 00:11 08/08/16 00:13 DC 08/08/16 01:20 Prednisone 40 mg 40 mg ONCE ONCE PO 08/08/16 00:30 08/08/16 00:31 DC 08/08/16 01:09 Sodium Chloride 1,000 ml @ 1,000 mls/hr Q1H ONCE IV 08/08/16 02:30 08/08/16 03:29 08/08/16 02:32 Norepinephrine (Levophed) 250 ml @ 1.875 mls/ hr TITRATE IV 08/08/16 02:30 08/08/16 03:08 Procedures/MDM 51-year-old female with significant cellulitis with septic shock. Also acute asthma exacerbation. She is given 30 cc/kg of IV fluid and treated with vancomycin and Rocephin. She is also given albuterol Atrovent breathing treatments did help resolve her wheezing. She was given 8 mg of morphine and IV diclofenac for her pain. Pain was treated with dilated jacked and morphine. She may also have urinary tract infection according to her urinalysis report. Blood pressure initially borderline low dropped and did not respond to fluid administration of 30 cc/kg +1 extra liter. Central line was placed and Levophed was started. Dr. Porter will be admitting the patient to the ICU. EKG interpretation: Normal sinus rhythm rate of 91, normal axis, right bundle branch block, no ST elevations or depressions over there are T-wave inversions in the anterior leads consistent with appropriate discordance of right bundle. basket assembler interpretation: Sinus tachycardia followed by normal sinus rhythm with fluid administration. No other arrhythmias Chest x-ray interpretation: I see no acute process. I see no pneumothorax, no infiltrate, no pulmonary edema, no fractures Venous ultrasound of left lower extremity interpretation: No DVT. Critical care time 45 minutes: This does not include any billable procedures however it does include treatment of septic shock from multiple infectious sources, antibiotic administration, very careful fluid administration, vasopressor use, chart reviewed, discussion with admitting doctor and patient, multiple visits the patient's bedside to reassess her status. Central line placement note, left femoral vein: Ultrasound guidance was used to easily introduce a 7 Sinhala triple-lumen catheter to the left femoral vein. Sterile technique was used with, mass gloves chlorhexidine, drapes. Anesthetized with 3 cc of lidocaine. All ports flushed well there is good blood flow. Secured with suture. Patient tolerated procedure well no complications. Perfusion Reassessment for Septic Shock: Temp 97.8, Pulse 101, RR 20], BP 87/51 Heart Exam: [Tachycardic] Lung Exam: Very mild wheezing improved from prior exam, no rales Capillary Refill: Less than once a Peripheral Pulses: [Radially present] Skin: Normal skin with no mottling. Departure Diagnosis: Primary Impression: Left leg cellulitis Additional Impressions: Sepsis due to cellulitis Acute asthma exacerbation UTI (urinary tract infection) Septic shock Condition: Serious PRIETO RAMIREZ DO Aug 08, 2016 00:19
[2016-08-08 00:28] LABS: TROPONIN-I < 0.012 ng/ml (0.00-0.12)
[2016-08-08] MEDS ORDERED: predniSONE 20 MG TAB PO ONE (00:30)
[2016-08-08] MEDS ORDERED: morphine 10 MG INJ IV ONE (00:30)
[2016-08-08] MEDS ORDERED: SOD CHLORIDE 0.9% 1,000 ML IV ONE (02:30)
[2016-08-08] MEDS: NORepinephrine 8MG/250 ML (PMX 250 ML IV SCH ×2 (03:08→07:00)
[2016-08-08] MEDS ORDERED: ATROPINE 1 MG/10 ML SYRINGE ONE ×2 (03:50→03:52)
[2016-08-08] MEDS ORDERED: ATROPINE 1 MG INJ IV ONE (04:00)
[2016-08-08] MEDS ORDERED: ATROPINE 1 MG/10 ML SYRINGE IV ONE (04:00)
[2016-08-08] MEDS ORDERED: VANCOMYCIN IV PER PHARMACY XX SCH (08:00)
[2016-08-08] MEDS ORDERED: HYDROCODONE/APAP (5/325) TAB PO PRN (08:00)
[2016-08-08] MEDS ORDERED: ZOLPIDEM 5 MG TAB PO PRN (08:00)
[2016-08-08] MEDS ORDERED: ACETAMINOPHEN 325 MG TAB PO PRN (08:00)
[2016-08-08] MEDS ORDERED: ONDANSETRON 4 MG INJ IV PRN (08:00)
[2016-08-08] MEDS ORDERED: NACL 0.9% 3 ML SYG IV SCH (08:00)
[2016-08-08] MEDS ORDERED: morphine 2 MG INJ IV PRN (08:00)
[2016-08-08] MEDS ORDERED: DOCUSATE SODIUM 100 MG CAP PO PRN (08:00)
--- NOTE | 2016-08-08 08:21 | HP ---
DATE OF ADMISSION: 08/07/2016 TIME: 6:20 a.m. CHIEF COMPLAINT: Left leg pain. HISTORY OF PRESENT ILLNESS: The patient is a 51-year-old female with a history of heroin abuse, lef t lower extremity weakness and numbness secondary to a history of IV drug abuse, multiple abscesses over the body from IV drug use. The patient presents with left foot redness and swelling. The qiana ent stated that she had not used heroin for a year, but used yesterday. The patient was given morph ine for her pain and her blood pressure dropped. She was started on pressors and once titration was attended blood pressure dropped again, so she was maintained on pressors. The patient has no other complaints. The patient does use methadone. She reported having some chills and shortness of [place] th. She has no other complaints. PAST MEDICAL HISTORY: As per HPI. 1. Chronic back disease. 2. COPD. SURGICAL HISTORY: 1. x2. 2. Hysterectomy. 3. Surgery to the right knee. HOME MEDICATIONS: See medication reconciliation. ALLERGIES: No known drug allergies. FAMILY HISTORY: Noncontributory. SOCIAL HISTORY: Denies any alcohol abuse. She does endorse heroin use, last use was reportedly 2 w eeks. She is a former smoker. REVIEW OF SYSTEMS: A 12-point review of systems was negative except for that described in the HPI. PHYSICAL EXAMINATION: VITAL SIGNS: Temperature is 97.8, pulse 64, respiratory rate 18, BP is 119/73, saturations 96% on 2 liters. GENERAL: In no acute distress, alert and oriented. HEENT: Normocephalic, atraumatic. LUNGS: Clear to auscultation. CARDIOVASCULAR: Regular rate and rhythm. ABDOMEN: Nondistended, nontender, soft. EXTREMITIES: No clubbing, cyanosis, edema. The left leg is notable for erythema, swelling. LABORATORIES: White count 16.5, hemoglobin 12.4, platelets are 234. Chemistry is within normal medrano its, except for creatinine of 1.03, anion gap 17. Lactic acid was 3.4, then below 0.5. INR is 1. U A is within normal limits, except for a WBC of 8. Leukocyte esterase is 1+. DIAGNOSTICS: Extremity venous study shows no evidence of DVT of the left lower extremity. Chest x- ray shows no evidence for acute intrathoracic pathology. ASSESSMENT AND PLAN: 1. Septic shock secondary to left lower extremity cellulitis. The patient is requiring pressor sup port at this time. Will treat with broad spectrum antibiotics, vancomycin and Zosyn. The patient wi ll have to be admitted to the ICU, as once again she is requiring a low dose of Levophed. 2. History of IV drug use. Will get a social work consultation. 3. Mild acute kidney injury. Will treat with IV fluids. 4. Chronic low back pain. No acute issues. 5. History of chronic obstructive pulmonary disease. Will give DuoNeb as needed and will also cont inue her home Spiriva and Advair. 6. Prophylaxis. Lovenox. Dictated By: JOANNE SALAZAR MD BS/NTS Conf#: [id number] DID#: [id number]
[2016-08-08] MEDS: SOD CHLORIDE 0.9% 1,000 ML IV SCH ×2 (08:24→17:19)
[2016-08-08] MEDS ORDERED: ENOXAPARIN 40 MG/0.4 ML SYG SC SCH (09:00)
[2016-08-08] MEDS ORDERED: VANCOMYCIN 750 MG in SOD CHLORIDE 0.9% 150 ML IVPB SCH (10:00)
[2016-08-08] MEDS ORDERED: SOD CHLORIDE 0.9% 500 ML IV ONE ×2 (11:00→15:00)
[2016-08-08] MEDS ORDERED: ALBUMIN HUMAN 25% 100 ML IV ONE (11:00)
--- NOTE | 2016-08-08 12:00 | PN ---
Date/Time of Note Date/Time of Note DATE: 08/08/16 TIME: 11:58 Assessment/Plan VTE Prophylaxis VTE Prophylaxis Intervention: LMWH Assessment/Plan Assessment/Plan 1. Septic shock secondary to left lower extremity cellulitis. Lecocytosis yeterday, pt had episode of ,Hypotension yesterday night, required levophed for BP support, now stable, will IV albumin with 500 cc bolus- then if BP stable, then we will send pt to Teleemtry floor 2. History of IV drug use. Will get a social work consultation. 3. ISAURA 2/2 Prerenal azotemia, IV fluids , improving 4. Chronic low back pain. No acute issues. 5. History of chronic obstructive pulmonary disease. Will give DuoNeb as needed and will also continue her home Spiriva and Advair. 6. Prophylaxis. Lovenox. send to telemetry floor IV abx BP stable now Subjective 24 Hr Interval Summary Free Text/Dictation alert,awake,HR in50s,BP stable off levophed Exam/Review of Systems Vital Signs Vitals Vital Signs Date Time Temp Pulse Resp B/P Pulse Ox O2 Delivery O2 Flow Rate FiO2 08/08/16 11:52 58 18 105/69 98 08/08/16 11:20 Room Air 08/08/16 06:46 2.0 08/08/16 06:00 97.8 08/08/16 00:40 21 Exam GENERAL: In no acute distress, alert and oriented. HEENT: Normocephalic, atraumatic. LUNGS: Clear to auscultation. CARDIOVASCULAR: Regular rate and rhythm. ABDOMEN: Nondistended, nontender, soft. EXTREMITIES: No clubbing, cyanosis, edema. The left leg is notable for erythema, swelling. Results Result Diagram: 08/07/16 2330 08/07/16 2330 Results 24 hrs Laboratory Tests Test 08/07/16 23:30 08/08/16 02:35 08/08/16 05:00 White Blood Count 15.5 #H Red Blood Count 4.43 Hemoglobin 12.4 Hematocrit 38.8 Mean Corpuscular Volume 87.6 Mean Corpuscular Hemoglobin 28.0 L Mean Corpuscular Hemoglobin Concent 32.0 Red Cell Distribution Width 13.8 Platelet Count 234 Mean Platelet Volume 11.1 H Neutrophils % 86.6 H Lymphocytes % 7.2 L Monocytes % 5.1 Eosinophils % 0.3 Basophils % 0.2 Nucleated Red Blood Cells % 0.0 Neutrophils # 13.4 H Lymphocytes # 1.1 Monocytes # 0.8 Eosinophils # 0.0 Basophils # 0.0 Nucleated Red Blood Cells # 0.0 Prothrombin Time 13.3 Prothrombin Time Ratio 1.0 INR International Normalized Ratio 1.01 Activated Partial Thromboplast Time 37.0 H Urine Color YELLOW Urine Clarity SLIGHTLY CLOUDY A Urine pH 5.0 Urine Specific [place] 1.026 Urine Ketones NEGATIVE Urine Nitrite NEGATIVE Urine Bilirubin NEGATIVE Urine Urobilinogen NEGATIVE Urine Leukocyte Esterase 1+ H Urine Microscopic RBC 2 Urine Microscopic WBC 8 H Urine Squamous Epithelial Cells FEW Urine Bacteria FEW A Urine Mucus FEW A Urine Hemoglobin NEGATIVE Urine Glucose NEGATIVE Urine Total Protein NEGATIVE Sodium Level 140 Potassium Level 4.5 Chloride Level 100 Carbon Dioxide Level 28 Anion Gap 17 H Blood Urea Nitrogen 16 Creatinine 1.03 H Glucose Level 88 Lactic Acid Level 0.9 3.4 H < 0.5 L Calcium Level 9.8 Total Bilirubin 0.1 L Direct Bilirubin 0.00 Indirect Bilirubin 0.1 Aspartate Amino Transf (AST/SGOT) 26 Alanine Aminotransferase (ALT/SGPT) 27 Alkaline Phosphatase 97 Troponin I < 0.012 Total Protein 8.4 H Albumin 4.5 Globulin 3.90 H Albumin/Globulin Ratio 1.15 Medications Medications Current Medications Sodium Chloride (NS) 1,000 ml @ 100 mls/hr Q10H IV Last administered on t 08:24; Admin Dose 100 MLS/HR; Start 08/08/16 at 07:46 Ondansetron HCl (Zofran Inj) 4 mg Q6H PRN IV NAUSEA AND/OR VOMITING; Start at 08:00 Acetaminophen (Tylenol Tab) 650 mg Q6H PRN PO PAIN LEVEL 1-3 OR FEVER; Start at 08:00 Acetaminophen/ Hydrocodone Bitart ([place] (5/325)) 1 tab Q6H PRN PO MODERATE PAIN LEVEL 4-6; Start 08/08/16 at 08:00 Morphine Sulfate (morphine) 2 mg Q4H PRN IV SEVERE PAIN LEVEL 7-10; Start 08/08 at 08:00 Docusate Sodium (Colace) 100 mg Q12H PRN PO CONSTIPATION; Start 08/08/16 at 08: 00 Zolpidem Tartrate (Ambien) 5 mg QHS PRN PO SLEEP; Start 08/08/16 at 08:00 Enoxaparin Sodium 40 mg 40 mg DAILY SC Last administered on 08/08/16 10:09; Admin Dose 40 MG; Start 08/08/16 at 09:00 Piperacillin Sod/ Tazobactam Sod 100 ml @ 200 mls/hr Q6 IVPB ; Start 08/08/16 at 12:00 Vancomycin HCl 750 mg/Sodium Chloride 150 ml @ 75 mls/hr Q12H IVPB Last administered on 08/08/16 10:10; Admin Dose 75 MLS/HR; Start 08/08/16 at 10:00 Albumin Human 100 ml @ 100 mls/hr ONCE ONCE IV Last administered on 11:02; Admin Dose 100 MLS/HR; Start 08/08/16 at 11:00; Stop 08/08/16 at 11: 59 Sodium Chloride (NS) 500 ml @ 500 mls/hr Q1H ONCE IV Last administered on 08/08 10:42; Admin Dose 500 MLS/HR; Start 08/08/16 at 11:00; Stop 08/08/16 at 11 :59 RERE COOPER MD Aug 08, 2016 12:00
[2016-08-08] MEDS: PIPER-TAZO 3.375 GM IV (PMX) 100 ML IVPB SCH ×2 (12:59→17:19)
--- NOTE | 2016-08-08 13:05 | CONS ---
DATE OF ADMISSION: 08/08/2016 DATE OF CONSULTATION: 08/08/2016 INFECTIOUS DISEASE CONSULTATION REASON FOR CONSULTATION: Antibiotic management. HISTORY OF PRESENT ILLNESS: Jazmin Christopher is a 51-year-old female with a history of heroin abuse, who comes in with left leg pain. The patient has lower extremity weakness and numbness secondary to a history of IV drug abuse and multiple abscesses over the body from IV drug abuse. She presents w ith left foot redness and swelling. She stated that she had not used heroin for a year, but used it the day prior to admission. She was given morphine for her pain. Blood pressure dropped and she w as started on pressors. The patient does use methadone. She reported having some chills and fever. Other problems include: 1. Heroin abuse. 2. Left leg pain. 3. Chronic back pain. 4. Chronic obstructive pulmonary disease. 5. x2. 6. Hysterectomy. 7. Surgery to the right knee. On admission the patient's white count was 16.5, hemoglobin 12.4, platelet count 234,000, hematocrit 38.8. BUN and creatinine 16/1.03. Urine, 1+ leukocyte esterase, 8 white cells per high powered fi eld. Chest x-ray shows no evidence for acute intrathoracic pathology. A venous study shows no sono graphic evidence of DVT. The patient was started on vancomycin and Zosyn. She had 1 dose of ceftri axone. PAST MEDICAL HISTORY: Operations as outlined. FAMILY HISTORY: Noncontributory. SOCIAL HISTORY: She does not smoke. She does use heroin. She does not abuse alcohol. She is a for nabila smoker. ALLERGIES: NONE TO PENICILLIN, SULFA OR FOODS. MEDICATIONS: Per chart. REVIEW OF SYSTEMS: Noncontributory. PHYSICAL EXAMINATION: GENERAL: The patient is a well-developed, well-nourished female, who is alert, responsive, in no ac [place] distress. VITAL SIGNS: Stable. She is afebrile. SKIN: Without generalized rash. HEENT: Within normal limits. NECK: Supple. LYMPH NODES: None palpable. CHEST: Decreased breath sounds at the bases. HEART: Without murmur or gallop. ABDOMEN: Soft, nontender, without organosplenomegaly or masses. EXTREMITIES: Left leg has erythema and swelling. IMPRESSION AND PLAN: The patient has septic shock secondary to lower extremity cellulitis. She is on pressors such as Levophed, and has received vancomycin and Zosyn. She is seen by Dr. Golden todd as well for prerenal azotemia. White count 16/.03, as noted. Will continue her on this regimen . I will dictate my findings to the hospitalist. Dictated By: SABRINA PAN MD, JD/ADAM Conf#: [id number] DID#: [id number]
== END 2016-08-08 22:15 | disposition left against medical advice (07) | DRG 871 ==
LOC: E/R 21:25 → MS4 08-08 03:14
PROVIDERS: ADMIT Internal Medicine; ATTEND Internal Medicine
DX: A41.9 Sepsis, unspecified organism (principal); R65.21 Severe sepsis with septic shock; J45.901 Unspecified asthma with (acute) exacerbation; J44.9 Chronic obstructive pulmonary disease, unspecified; L03.116 Cellulitis of left lower limb; N39.0 Urinary tract infection, site not specified; F11.10 Opioid abuse, uncomplicated; M54.5 Low back pain; Z87.891 Personal history of nicotine dependence
CPT/HCPCS: 36415; 71010; 76937; 80053; 81001; 83605; 84484; 85025; 85610; 85730; 87040; 87086; 93005; 93971; 94644; 96365; 96366; 96372; 96375; 96376; J0461; J0696; J1650; J2270; J2543; J3370; J7030; J7040; J7512; P9047

== ENCOUNTER 2016-09-11 06:13 | Emergency (ER) | payer OTHER ==
[~2016-09-11] VITALS: Wt 76.0 kg
[~2016-09-11 06:13] MED LIST changes: -FIORICET PO; -MAG355OR14 PO; -METH10TA2 PO; -ONDA4TAB11 PO; -ONDA4TAB8 PO; -PANT40TA4 PO
[2016-09-11] MEDS ORDERED: CLINDAMYCIN 900 MG/D5W (PMX) 50 ML IVPB STA (06:54)
[2016-09-11] MEDS ORDERED: VANCOMYCIN 1 GM (PMX) 250 ML IVPB STA (07:01)
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
[2016-09-11] MEDS ORDERED: KETOROLAC 30 MG INJ IV STA (07:19)
[2016-09-11 07:27] LABS: BASOPHILS % 0.2 % (0.0-2.0); EOSINOPHILS # 0.1 10^3/ul (0.0-0.5); EOSINOPHILS % 1.5 % (0.0-7.0); HEMATOCRIT 34.1 % (37.0-47.0); HEMOGLOBIN 10.3 g/dl (12.0-16.0); LYMPHOCYTES # 1.4 10^3/ul (0.8-2.9); LYMPHOCYTES % 15.5 % (15.0-51.0); MEAN CORPUSCULAR HEMOGLOBIN 27.5 pg (29.0-33.0); MEAN CORPUSCULAR HGB CONC 30.2 g/dl (32.0-37.0); MEAN CORPUSCULAR VOLUME 90.9 fl (82.0-101.0); MEAN PLATELET VOLUME 10.9 fl (7.4-10.4); MONOCYTE # 0.6 10^3/ul (0.3-0.9); MONOCYTES % 7.1 % (0.0-11.0); NEUTROPHIL # 6.6 10^3/ul (1.6-7.5); NEUTROPHILS % 75.1 % (39.0-77.0); PLATELET COUNT 203 10^3/UL (140-415); RED BLOOD COUNT 3.75 10^6/ul (4.20-5.40); RED CELL DISTRIBUTION WIDTH 14.2 % (11.5-14.5); WHITE BLOOD COUNT 8.8 10^3/ul (4.8-10.8)
[2016-09-11 07:48] LABS: ALBUMIN 3.6 g/dl (3.3-4.9); ALBUMIN/GLOBULIN RATIO 1.05; CALCIUM 9.1 mg/dl (8.4-10.2); CREATININE 0.87 mg/dl (0.44-1.00)
[2016-09-11] MEDS ORDERED: SOD CHLORIDE 0.9% 1,000 ML IV STA (07:56)
[2016-09-11] MEDS ORDERED: SULF1TAB31 PO (08:21)
[2016-09-11] MEDS ORDERED: CEPH-443 PO (08:21)
[2016-09-11 09:19] VITALS: BP 132/78; PULSE 86; RESP 20; TEMP 98.3
== END 2016-09-11 09:44 | disposition home or self-care (01) ==
LOC: FTE 06:13
DX: L03.115 Cellulitis of right lower limb (principal); J44.9 Chronic obstructive pulmonary disease, unspecified; Z87.891 Personal history of nicotine dependence
CPT/HCPCS: 80053; 85025; 96365; 96366; 96375; J1885; J3370; J7030; Z7502

== ENCOUNTER 2016-12-03 16:57 | Emergency (ER) | payer OTHER ==
[~2016-12-03] VITALS: Ht 154.9 cm; Wt 76.0 kg
[~2016-12-03 16:57] MED LIST changes: +CEPH-443 PO; +SULF1TAB31 PO
[2016-12-03 16:59] VITALS: Ht 154.9 cm; Wt 76.0 kg
[2016-12-03] MEDS ORDERED: VANCOMYCIN 1 GM (PMX) 250 ML IVPB STA (17:35)
[2016-12-03] MEDS ORDERED: PIPER-TAZO 3.375 GM IV (PMX) 100 ML IVPB STA (17:35)
[2016-12-03] MEDS ORDERED: ACETAMINOPHEN 325 MG TAB PO STA (17:35)
--- NOTE | 2016-12-03 17:35 | ERD ---
ER Documentation Chief Complaint Chief Complaint BILAT REDNESS AND SWELLING ON ANKLE AND CALF HPI This 51-year-old female presents to emergency department with a red hot edematous RLE x 3 days pt denies injury ,or hx of MRSA. reports fever and fatigue ROS All systems reviewed and are negative except as per history of present illness. Medications Home Meds Active Scripts Albuterol Sulfate* (Ventolin HFA*) 18 Gm Hfa.aer.ad, 2 PUFF INHALATION Q4H, #1 INHALER Prov:FIORELLA,NIKKI 12/03/16 Hydrocodone/Acetaminophen ([place] 5-325 Tablet) 1 Each Tablet, 1 TAB PO Q6H Y for PAIN, #7 TAB Prov:FIORELLA,NIKKI 12/03/16 Ibuprofen* (Motrin*) 600 Mg Tab, 600 MG PO Q6, #30 TAB Prov:FIORELLA,NIKKI 12/03/16 Sulfamethoxazole/Trimethoprim* (Bactrim Ds* Tablet) 1 Each Tablet, 1 TAB PO BID for 7 Days, #14 TAB Prov:FIORELLA,NIKKI 12/03/16 Cephalexin* (Keflex*) 500 Mg Capsule, 500 MG PO QID for 10 Days, CAP Prov:FIORELLA,NIKKI 12/03/16 Sulfamethoxazole/Trimethoprim* (Bactrim Ds* Tablet) 1 Each Tablet, 1 TAB PO BID , #20 TAB Prov:LOUISE LAST PA-C 09/11/16 Cephalexin* (Keflex*) 500 Mg Capsule, 500 MG PO QID for 14 Days, CAP Prov:LOUISE LAST PA-C 09/11/16 Ibuprofen* (Ibuprofen*) 600 Mg Tablet, 600 MG PO Q8 for PAIN AND/OR INFLAMMATION , #30 TAB Prov:PRANEETH THOMPSON MD 03/28/16 Diphenoxylate Hcl-Atropine* (Lomotil*) 5 Ml Soln, 5 ML GTB Q6H Y for DIARRHEA, # 14 ML Prov:PRIETO RAMIREZ DO 02/28/16 Naproxen* (Naproxen*) 500 Mg Tablet, 500 MG PO BID Y for PAIN, #20 TAB Prov:PRIETO RAMIREZ DO 02/28/16 Tiotropium [place]* (Spiriva*) 1 Inh Inha, 1 INH INH DAILY for 30 Days Prov:GARETH VANG 02/20/15 Salmeterol Xinaf/Fluticasone* (Advair*) 1 Inh Inha, 1 INH INH BID for 30 Days Prov:ROLANIDOGARETH Hernández 02/20/15 Multivitamins* (Theragran*) 1 Tab Tab, 1 TAB PO DAILY for 30 Days, TAB Prov:GARETH VANG 02/20/15 Reported Medications Clonazepam* (Klonopin*) 1 Mg Tablet, 2 MG PO Q6 Y for ANXIETY, TAB 05/30/15 Temazepam* (Restoril*) 7.5 Mg Capsule, 7.5 MG PO HS Y for INSOMNIA, CAP 05/30/15 Albuterol Sulfate* (Proair HFA*) 8.5 Gm Hfa.aer.ad, 2 PUFF INH Q4, INH 11/24/13 Allergies Allergies: Coded Allergies: No Known Allergy (Unverified , 08/08/16) PMhx/Soc History of Surgery: Yes (ORTHO SURGERY ) Anesthesia Reaction: No Hx Neurological Disorder: No Hx Respiratory Disorders: Yes (COPD.) Hx Cardiac Disorders: No Hx Psychiatric Problems: No Hx Miscellaneous Medical Probl: No Hx Alcohol Use: No Hx Substance Use: Yes (HEROIN ABUSER.) Hx Tobacco Use: Yes (FORMER SMOKER.) Physical Exam Vitals Vital Signs Date Time Temp Pulse Resp B/P Pulse Ox O2 Delivery O2 Flow Rate FiO2 12/03/16 21:05 98.8 96 18 108/68 97 Room Air 12/03/16 16:59 99.9 102 18 107/69 95 Physical Exam Const: Well-nourished well-hydrated well-appearing 51-year-old female in no acute distress Head: Atraumatic Eyes: Normal Conjunctiva ENT: Normal External Ears, Nose and Mouth. Neck: Full range of motion..~ No meningismus. Resp: Clear to auscultation bilaterally Cardio: Regular rate and rhythm, no murmurs Abd: Soft, non tender, non distended. Normal bowel sounds Skin: No petechiae or rashes Back: No midline or flank tenderness Ext: No cyanosis, or edema Neur: Awake and alert Psych: Normal Mood and Affect Result Diagram: 12/03/16181412/03/161814 Results 24 hrs Laboratory Tests Test 12/03/16 18:15 White Blood Count 10.010^3/ul Red Blood Count 4.1710^6/ul Hemoglobin 11.3g/dl Hematocrit 37.4% Mean Corpuscular Volume 89.7fl Mean Corpuscular Hemoglobin 27.1pg Mean Corpuscular Hemoglobin Concent 30.2g/dl Red Cell Distribution Width 15.0% Platelet Count 91163^3/UL Mean Platelet Volume 11.0fl Neutrophils % 70.1% Lymphocytes % 17.6% Monocytes % 7.9% Eosinophils % 3.8% Basophils % 0.2% Nucleated Red Blood Cells % 0.0/100WBC Neutrophils # 7.010^3/ul Lymphocytes # 1.810^3/ul Monocytes # 0.810^3/ul Eosinophils # 0.410^3/ul Basophils # 0.010^3/ul Nucleated Red Blood Cells # 0.010^3/ul Sodium Level 142mmol/L Potassium Level 4.4mmol/L Chloride Level 106mmol/L Carbon Dioxide Level 27mmol/L Anion Gap 13 Blood Urea Nitrogen 13mg/dl Creatinine 0.83mg/dl Glucose Level 113mg/dl Calcium Level 8.8mg/dl Total Bilirubin 0.1mg/dl Direct Bilirubin 0.00mg/dl Indirect Bilirubin 0.1mg/dl Aspartate Amino Transf (AST/SGOT) 33IU/L Alanine Aminotransferase (ALT/SGPT) 30IU/L Alkaline Phosphatase 95IU/L Total Protein 7.6g/dl Albumin 3.8g/dl Globulin 3.80g/dl Albumin/Globulin Ratio 1.00 Current Medications Medications (Trade) Dose Ordered Sig/Shant Route PRN Reason Start Time Stop Time Status Last Admin Dose Admin Acetaminophen 650 mg 650 mg ONCE STAT PO 12/03/16 17:35 12/03/16 17:41 DC 12/03/16 18:36 Vancomycin HCl 250 ml @ 125 mls/hr ONCE STAT IVPB 12/03/16 17:35 12/03/16 19:34 DC 12/03/16 18:37 Piperacillin Sod/ Tazobactam Sod 100 ml @ 100 mls/hr ONCE STAT IVPB 12/03/16 17:35 12/03/16 18:34 DC 12/03/16 18:40 Sodium Chloride (NS) 1,000 ml @ 1,000 mls/hr Q1H ONCE IV 12/03/16 18:00 12/03/16 18:59 DC 12/03/16 18:35 Acetaminophen/ Hydrocodone Bitart ([place] (5/325)) 1 tab ONCE ONCE PO 12/03/16 20:00 12/03/16 20:01 DC 12/03/16 20:02 Diphenhydramine HCl (Benadryl) 25 mg ONCE ONCE PO 12/03/16 21:30 12/03/16 21:31 Interpretation text CBC shows no evidence of hemorrhage or infection Chemistry shows no evidence of significant electrolyte abnormalities or renal insufficiency . Procedures/MDM This 51-year-old female presents to emergency department with a red hot painful left lower extremity, patient reports sudden onset 2 days, denies injury. Denies history of MRSA or frequent cellulitis. Reports that she is nicotine dependent smokes a pack to a half pack a day. Emergency room course today includes history and physical exam, venous Doppler negative for evidence of deep vein thrombosis, serology negative infection, hemorrhage, hemoglobin is slightly abnormal at 11, negative for electrolyte imbalance, renal insufficiency , patient prophylactically treated for infection with Rocephin, Zosyn,, Rocephin discontinued with <50 cc remaining in bad, patient reports irritation and itching at insertion site, patient given 25 mg of p.o. Benadryl with effective relief of itching. She has received a liter of normal saline, Tylenol 650 mg for pain, patient reports Tylenol ineffective requests another medication, [place] 5/325 given patient was advised to watch Tylenol intake. Plan to discharge patient home on Keflex, Bactrim, ibuprofen, and 7 [place]. Rest , keep leg elevated, return to emergency department if symptoms fail to improve as anticipated. Follow-up in emergency department for reevaluation in 48 hours. Increase fluids, increase rest, Patient is stable with no new complaints during ER course, clinically there is no current evidence to suggest meningitis, sepsis, necrotizing fasciitis compartment syndrome, Matthews-Joel syndrome, anaphylactic shock, angioedema, difficulty speaking, tongue swelling or any other emergent condition appearing to require further evaluation or hospitalization. I feel the patient is stable for discharge at this time. I have discussed results, examination findings, the treatment plan with the patient and family present prior to discharge. Indications for emergent reevaluation, side effects of medication were also discussed. All questions were answered. Patient verbalizes understanding and agrees with plan of care. Late entry, patient has opiate addiction on chart when asked patient reports she has not used intravenous heroin in 8 years. Patient also is requesting a albuterol MDI, patient has history of asthma, Ventolin ordered. No refill Departure Diagnosis: Primary Impression: Cellulitis Site of cellulitis: extremity Site of cellulitis of extremity: lower extremity Laterality: left Qualified Code: L03.116 - Cellulitis of left lower extremity Condition: Good Patient Instructions: Cellulitis Referrals: [facility] Additional Instructions: Thank you for for coming to [facility] for your care today. Please ask your nurse or provider if you have questions about your care today and do not leave until all your questions have been answered. Please use any medications given as directed and follow-up with your doctor (or the doctor you were referred to) in the next 2-3 days. If you do not have a primary care doctor you may follow up at the [facility] (listed below). You may also use motrin and tylenol as needed for fever and/or pain unless instructed otherwise by your provider or nurse. Indications for more urgent follow-up have been discussed, but you may return to the Emergency Department at ANY time for any worrisome or worsening symptoms. If you have abdominal pain, please know that no test or exam you received is perfect and you should follow up within 8 hours for continued pain. If you had any imaging studies today, such as an X-Ray or CT Scan, these studies will be reviewed later by a radiologist. You will be called if there are important findings that were not identified today, so make sure the contact information you provided at registration is correct. If you received any narcotic pain control medicine today, such as Vicodin, Morphine or Dilaudid, your coordination and judgment may be affected for a number of hours. Please do not drive or operate heavy machinery, and you may want someone to assist you at home. If you were given a prescription for narcotic medication, be aware that it is very addictive- use sparingly and only if necessary. NIKKI BARROS Dec 03, 2016 17:35
[2016-12-03] MEDS ORDERED: SOD CHLORIDE 0.9% 1,000 ML IV ONE (18:00)
--- NOTE | 2016-12-03 18:25 | RADRPT ---
PROCEDURE: US right lower extremity veins. CLINICAL INDICATION: Right leg pain and swelling. TECHNIQUE: Multiple longitudinal and transverse images of the right lower extremity veins were obt ained with tobin scale and color Doppler imaging. The common femoral vein, femoral vein, and poplitea l vein were evaluated. 2D grayscale measurements with compression sonography, pulsed Doppler, color Doppler, and pulsed Doppler with augmentation. COMPARISON: No prior studies are available for comparison. FINDINGS: The right common femoral, femoral and popliteal veins are normally compressible throughout. Color f low demonstrates normal filling of the vessels. Normal waveforms are visualized and there is normal response to augmentation. IMPRESSION: 1. No evidence of deep vein thrombosis involving the right lower extremity. RPTAT: QQ .John Alvarez MD, MD Date Time Electronically viewed and signed by .John Alvarez MD, MD on 12/03/2016 18:25 .R/
[2016-12-03 18:26] LABS: BASOPHILS % 0.2 % (0.0-2.0); EOSINOPHILS # 0.4 10^3/ul (0.0-0.5); EOSINOPHILS % 3.8 % (0.0-7.0); HEMATOCRIT 37.4 % (37.0-47.0); HEMOGLOBIN 11.3 g/dl (12.0-16.0); LYMPHOCYTES # 1.8 10^3/ul (0.8-2.9); LYMPHOCYTES % 17.6 % (15.0-51.0); MEAN CORPUSCULAR HEMOGLOBIN 27.1 pg (29.0-33.0); MEAN CORPUSCULAR HGB CONC 30.2 g/dl (32.0-37.0); MEAN CORPUSCULAR VOLUME 89.7 fl (82.0-101.0); MONOCYTE # 0.8 10^3/ul (0.3-0.9); MONOCYTES % 7.9 % (0.0-11.0); NEUTROPHILS % 70.1 % (39.0-77.0); PLATELET COUNT 203 10^3/UL (140-415); RED BLOOD COUNT 4.17 10^6/ul (4.20-5.40)
[2016-12-03 18:44] LABS: ALBUMIN 3.8 g/dl (3.3-4.9); BILIRUBIN,INDIRECT 0.1 mg/dl (0-1.1); BILIRUBIN,TOTAL 0.1 mg/dl (0.2-1.3); CALCIUM 8.8 mg/dl (8.4-10.2); CREATININE 0.83 mg/dl (0.44-1.00); POTASSIUM 4.4 mmol/L (3.5-5.1); TOTAL PROTEIN 7.6 g/dl (6.1-8.1)
[2016-12-03] MEDS ORDERED: CEPH-443 PO (19:53)
[2016-12-03] MEDS ORDERED: IBUP-1542 PO (19:53)
[2016-12-03] MEDS ORDERED: SULF1TAB31 PO (19:53)
[2016-12-03] MEDS ORDERED: HYDR-906 PO (19:54)
[2016-12-03] MEDS ORDERED: HYDROCODONE/APAP (5/325) TAB PO ONE (20:00)
[2016-12-03 21:05] VITALS: BP 108/68; PULSE 96; RESP 18; TEMP 98.8
[2016-12-03] MEDS ORDERED: ALBU18HF INHALATION (21:06)
[2016-12-03] MEDS ORDERED: DIPHENHYDRAMINE 25 MG CAP PO ONE (21:30)
== END 2016-12-03 21:06 | disposition home or self-care (01) ==
LOC: FTE 16:57
DX: L03.116 Cellulitis of left lower limb (principal); Z87.891 Personal history of nicotine dependence
CPT/HCPCS: 36415; 80053; 85025; 93971; 96374; 96375; J2543; J3370; J7030; Z7502; Z7610

== ENCOUNTER 2017-05-20 04:15 | Emergency (ER) | END 2017-05-20 04:54 | disposition home or self-care (01) ==

== ENCOUNTER 2018-07-03 23:20 | Emergency (ER) | payer OTHER ==
[~2018-07-03] VITALS: Ht 160 cm; Wt 76.1 kg
[~2018-07-03 23:20] MED LIST changes: +ALBU18HF INHALATION; -ALBU8.5H3 INH; +ALBU8.5H8 INH; +HYDR-4011 PO
[2018-07-03 23:39] VITALS: Ht 160 cm; Wt 76.1 kg
[2018-07-04] MEDS ORDERED: SOD CHLORIDE 0.9% 500 ML IV STA (08:00)
[2018-07-04] MEDS ORDERED: KETOROLAC 15 MG INJ IV STA (08:00)
--- NOTE | 2018-07-04 08:06 | ERD ---
ER Documentation Chief Complaint Chief Complaint R arm numbness since yesterday; feels lump on R side of head HPI 53-year-old woman complaining of 2 days of right hand weakness, loss of comfort filler strength, states she has difficulty holding cups and brushes. She has had paresthesias to the hands as well but that is a more chronic issue. She also complains of painful lumps to her scalp, but again that is a chronic issue for her. She states the weakness is new and denies prior episodes. Patient states she underwent dental surgery with multiple tooth extractions a couple of weeks ago. She denies fevers or chills, no weight loss, no chest pain or shortness of breath, no neck pain or neck stiffness ROS All systems reviewed and are negative except as per history of present illness. Medications Home Meds Active Scripts Ibuprofen* (Motrin*) 600 Mg Tab, 600 MG PO Q8 PRN for PAIN AND/OR INFLAMMATION, #30 TAB Prov:PRANEETH THOMPSON MD 07/04/18 Cephalexin* (Keflex*) 500 Mg Capsule, 500 MG PO QID for 5 Days, CAP Prov:PRANEETH THOMPSON MD 07/04/18 Ibuprofen* (Motrin*) 600 Mg Tab, 600 MG PO Q6H PRN for PAIN AND OR ELEVATED TEMP, #30 TAB Prov:ANNELISE RAE NP 05/20/17 Cephalexin* (Keflex*) 500 Mg Capsule, 500 MG PO QID for 10 Days, CAP Prov:ANNELISE RAE NP 05/20/17 Sulfamethoxazole/Trimethoprim* (Bactrim Ds* Tablet) 1 Each Tablet, 1 TAB PO BID for 10 Days, #14 TAB Prov:ANNELISE RAE NP 05/20/17 Albuterol Sulfate* (Ventolin HFA*) 18 Gm Hfa.aer.ad, 2 PUFF INHALATION Q4H, #1 INHALER Prov:FIORELLA,NIKKI 12/03/16 Hydrocodone/Acetaminophen ([place] 5-325 Tablet) 1 Each Tablet, 1 TAB PO Q6H PRN for PAIN, #7 TAB Prov:FIORELLA,NIKKI 12/03/16 Ibuprofen* (Motrin*) 600 Mg Tab, 600 MG PO Q6, #30 TAB Prov:FIORELLA,NIKKI 12/03/16 Sulfamethoxazole/Trimethoprim* (Bactrim Ds* Tablet) 1 Each Tablet, 1 TAB PO BID for 7 Days, #14 TAB Prov:FIORELLA,NIKKI 12/03/16 Cephalexin* (Keflex*) 500 Mg Capsule, 500 MG PO QID for 10 Days, CAP Prov:FIORELLA,NIKKI 12/03/16 Sulfamethoxazole/Trimethoprim* (Bactrim Ds* Tablet) 1 Each Tablet, 1 TAB PO BID, #20 TAB Prov:LOUISE LASTC 09/11/16 Cephalexin* (Keflex*) 500 Mg Capsule, 500 MG PO QID for 14 Days, CAP Prov:LOUISE LASTC 09/11/16 Ibuprofen* (Ibuprofen*) 600 Mg Tablet, 600 MG PO Q8 for PAIN AND/OR INFLAMMATION, #30 TAB Prov:PRANEETH THOMPSON MD 03/28/16 Diphenoxylate Hcl-Atropine* (Lomotil*) 5 Ml Soln, 5 ML GTB Q6H PRN for DIARRHEA, #14 ML Prov:PRIETO RAMIREZ DO 02/28/16 Naproxen* (Naproxen*) 500 Mg Tablet, 500 MG PO BID PRN for PAIN, #20 TAB Prov:PRIETO RAMIREZ DO 02/28/16 Tiotropium [place]* (Spiriva*) 1 Inh Inha, 1 INH INH DAILY for 30 Days Prov:GARETH VANG 02/20/15 Salmeterol Xinaf/Fluticasone* (Advair*) 1 Inh Inha, 1 INH INH BID for 30 Days Prov:GARETH VANG 02/20/15 Multivitamins* (Theragran*) 1 Tab Tab, 1 TAB PO DAILY for 30 Days, TAB Prov:GARETH VANG 02/20/15 Reported Medications Clonazepam* (Klonopin*) 1 Mg Tablet, 2 MG PO Q6 PRN for ANXIETY, TAB 05/30/15 Temazepam* (Restoril*) 7.5 Mg Capsule, 7.5 MG PO HS PRN for INSOMNIA, CAP 05/30/15 Albuterol Sulfate* (Proair HFA*) 8.5 Gm Hfa.aer.ad, 2 PUFF INH Q4, INH 11/24/13 Allergies Allergies: Coded Allergies: No Known Allergy (Unverified , 08/08/16) PMhx/Soc COPD History of Surgery: Yes (choli, , Hysterectomy) Anesthesia Reaction: No Hx Neurological Disorder: No Hx Respiratory Disorders: No Hx Cardiac Disorders: No Hx Psychiatric Problems: No Hx Miscellaneous Medical Probl: No Hx Alcohol Use: No Hx Substance Use: No Hx Tobacco Use: Yes Smoking Status: Current every day smoker FmHx Family History: No diabetes Physical Exam Vitals Vital Signs Date Temp Pulse Resp B/P (MAP) Pulse Ox O2 O2 Flow FiO2 Time Delivery Rate 07/04/18 98.1 57 18 109/1 (37) 100 Room Air 11:25 07/04/18 62 09:39 07/04/18 46 19 102/66 98 09:21 (78) 07/04/18 97.5 54 20 111/63 100 Room Air 04:56 (79) 07/03/18 97.3 80 20 109/61 98 23:39 (77) Physical Exam GENERAL: Well-developed, well-nourished, well-hydrated, in no apparent distress, looks nontoxic in appearance HEENT: Moist mucous membranes, patient has firm tender indurations to the scalp consistent with dermoid cysts pink conjunctiva, no cervical spine tenderness or step-off deformities, no goiter, no jaundice or icterus, extraocular movements intact without pain. NEURO: Alert and oriented 3, cranial nerves II through XII intact bilaterally, pupils equal round reactive to light, no focal deficits or facial asymmetry, sensation intact distally Strength 5/5 in upper and lower extremities bi laterally, comfort filler strengths are normal, no pronator drift CARDIAC: Regular rate and rhythm, no murmurs rubs or gallops LUNGS: Clear bilaterally no wheezing crackles or stridor ABDOMEN: Soft nontender, no guarding, no rigidity, no rebound, no psoas sign no obturator sign. Normoactive bowel sounds SKIN: Warm and dry to touch, no abrasions, contusions, or hematomas, no lacerations, no ecchymosis, no target lesions, and without ulcers EXTREMITIES: No clubbing cyanosis, clubbing to the fingers, loss of bilateral hypothenar eminences PSYCH: Normal affect without agitation or irritability Result Diagram: 07/04/1818 07/04/18 0810 Results 24 hrs Laboratory Tests Test 07/04/18 08:10 07/04/18 09:18 Urine Color YELLOW Urine Clarity SLIGHTLY CLOUDY Urine pH 5.0 Urine Specific [place] 1.030 Urine Ketones NEGATIVE mg/dL Urine Nitrite NEGATIVE mg/dL Urine Bilirubin NEGATIVE mg/dL Urine Urobilinogen NEGATIVE mg/dL Urine Leukocyte Esterase 1+ Chandan/ul Urine Microscopic RBC 4 /HPF Urine Microscopic WBC 14 /HPF Urine Squamous Epithelial Cells MODERATE /HPF Urine Bacteria FEW /HPF Urine Mucus FEW /HPF Urine Hemoglobin NEGATIVE mg/dL Urine Glucose NEGATIVE mg/dL Urine Total Protein NEGATIVE mg/dl Sodium Level 146 mmol/L Potassium Level 4.3 mmol/L Chloride Level 106 mmol/L Carbon Dioxide Level 31 mmol/L Anion Gap 9 Blood Urea Nitrogen 20 mg/dl Creatinine 0.82 mg/dl Est Glomerular Filtrat Rate mL/min > 60 mL/min Glucose Level 80 mg/dl Calcium Level 9.8 mg/dl Total Bilirubin 0.2 mg/dl Direct Bilirubin 0.00 mg/dl Indirect Bilirubin 0.2 mg/dl Aspartate Amino Transf (AST/SGOT) 40 IU/L Alanine Aminotransferase (ALT/SGPT) 15 IU/L Alkaline Phosphatase 106 IU/L Total Protein 8.8 g/dl Albumin 4.2 g/dl Globulin 4.60 g/dl Albumin/Globulin Ratio 0.91 Lipase 48 U/L White Blood Count 5.3 10^3/ul Red Blood Count 4.36 10^6/ul Hemoglobin 11.4 g/dl Hematocrit 38.0 % Mean Corpuscular Volume 87.2 fl Mean Corpuscular Hemoglobin 26.1 pg Mean Corpuscular Hemoglobin Concent 30.0 g/dl Red Cell Distribution Width 14.5 % Platelet Count 233 10^3/UL Mean Platelet Volume 10.6 fl Immature Granulocytes % 0.600 % Neutrophils % 41.1 % Lymphocytes % 40.2 % Monocytes % 10.1 % Eosinophils % 7.2 % Basophils % 0.8 % Nucleated Red Blood Cells % 0.0 /100WBC Immature Granulocytes # 0.030 10^3/ul Neutrophils # 2.2 10^3/ul Lymphocytes # 2.1 10^3/ul Monocytes # 0.5 10^3/ul Eosinophils # 0.4 10^3/ul Basophils # 0.0 10^3/ul Nucleated Red Blood Cells # 0.0 10^3/ul Current Medications Medications Dose Sig/Shant Start Time Status Last (Trade) Ordered Route PRN Stop Time Admin Dose Reason Admin Sodium 500 ml @ Q1H STAT 07/04/18 DC 07/04/18 Chloride 500 mls/hr IV 08:00 08:56 07/04/18 08:59 Ketorolac 15 mg ONCE STAT 07/04/18 DC 07/04/18 Tromethamine IV 08:00 08:55 (Toradol) 07/04/18 08:01 Aspirin 324 mg ONCE ONCE 07/04/18 DC 07/04/18 (Aspirin) PO 08:30 08:55 07/04/18 08:31 Cephalexin 500 mg ONCE ONCE 07/04/18 DC 07/04/18 (Keflex) PO 09:30 09:38 07/04/18 09:31 Procedures/MDM IV line was established patient was placed on rn cardiac rhythm strip revealed a sinus rhythm at about 60 bpm with upright P and T waves. Patient was afebrile I administered 1 L normal saline IV and aspirin 324 mg p.o., Toradol 15 mg IV EKG performed, read by me revealed a sinus bradycardia 46 bpm, normal axis, right bundle branch block, no concerning ST elevations or depressions noted Chest X-ray 1V Interpreted by me: Soft Tissue: No acute abnormalities Bones: No acute abnormalities Mediastinum/Cardiac Silhouette/Lungs: No acute abnormalities CT scan of the brain was performed was negative for acute bleed mass or shift CBC and electrolytes are normal, liver function tests normal, urinalysis positive for infection. I treated her here with cephalexin 500 mg p.o. x1 Patient's neurologic examination was repeated by me at the bedside and it remains normal, she has no pronator drift and no deficits on exam, gait is normal. Differential diagnoses considered, included but not limited to acute coronary syndrome, pulmonary embolism, aortic dissection, abdominal aortic aneurysm, sepsis, stroke, meningitis, encephalitis, pneumonia, appendicitis, cholecystitis, bowel obstruction, pyelonephritis, nephrolithiasis, cystitis, as well as metabolic, hematologic, and electrolyte abnormalities. As well as abscess, cellulitis, fractures, and dislocations. Patient feels much better at this time, and vital signs are normal, symptoms have improved. I did give strict instructions to return to the ED if symptoms continue or worsen, patient will otherwise follow-up with primary care physician. Patient understood instructions and agreed to plan. Disclaimer: Inadvertent spelling and grammatical errors are likely due to EHR/dictation software use and do not reflect on the overall quality of patient care. Also, please note that the electronic time recorded on this note does not necessarily reflect the actual time of the patient encounter. Departure Diagnosis: Primary Impression: Dermoid cyst Additional Impressions: Paresthesias Acute UTI Condition: Good PRANEETH THOMPSON MD July 04, 2018 08:06
[2018-07-04] MEDS ORDERED: ASPIRIN 81 MG TAB PO ONE (08:30)
[2018-07-04] MEDS ORDERED: CEPH-443 PO (09:21)
[2018-07-04] MEDS ORDERED: IBUP-1542 PO (09:21)
[2018-07-04] MEDS ORDERED: CEPHALEXIN 500 MG CAP PO ONE (09:30)
[2018-07-04 11:25] VITALS: BP 109/1; PULSE 57; RESP 18
== END 2018-07-04 11:25 | disposition home or self-care (01) ==
LOC: E/R 23:20
DX: D36.7 Benign neoplasm of other specified sites (principal); R20.2 Paresthesia of skin; N39.0 Urinary tract infection, site not specified; F17.210 Nicotine dependence, cigarettes, uncomplicated; R00.1 Bradycardia, unspecified
CPT/HCPCS: 70450; 71045; 80053; 81001; 83690; 85025; 93005; 96374; J1885; J7040; Z7502; Z7610